=== PATIENT | female | born 2000 | race Hispanic/Latino ===

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

== ENCOUNTER 2020-12-05 11:31 | Emergency (ER) | payer BC, MEDICAID ==
[2020-12-05 11:45] VITALS: BP 139/80
--- NOTE | 2020-12-05 13:56 | Emergency Department Report ---
<DEEPAK PIZANO - Last Filed: 12/05/20 16:29> ED General Adult HPI - General Chief complaint: Medical Clearance Stated complaint: 14WKS /CHECK BABY MOVEMENT Time Seen by Provider: 12/05/20 13:20 Source: patient Mode of arrival: Ambulatory Limitations: No Limitations - History of Present Illness Initial comments: 20-year-old female patient presents from her [facility] for ultrasound. Patient states she is 14 weeks and has been having lower abdominal cramping without bleeding. She denies any dysuria/hematuria/urinary frequency, stool changes, nausea/vomiting, or fever/chills/sweats. Patient states the abdominal cramping is very mild and intermittent and rates her pain as a 1/10 in severity. She also denies any dyspareunia. She states she has had mild vaginal discharge that is nonodorous and white in color. No other past medical history per patient. - Related Data Allergies Allergy/AdvReac Type Severity Reaction Status Date / Time No Known Allergies Allergy Verified 12/05/20 11:41 ED Review of Systems Constitutional: denies: chills, fever, malaise Respiratory: denies: cough, shortness of breath Cardiovascular: denies: chest pain Gastrointestinal: as per HPI. denies: nausea, vomiting Genitourinary: discharge. denies: urgency, dysuria, frequency, hematuria, abnormal menses, dyspareunia Musculoskeletal: denies: back pain Skin: denies: lesions, change in color ED Past Medical Hx - Past Medical History Previous Medical History?: No - Surgical History Past Surgical History?: No - Social History Smoking Status: Current Every Day Smoker Substance Use Type: None ED Physical Exam - General Limitations: No Limitations General appearance: alert, in no apparent distress - Head Head exam: Present: atraumatic, normocephalic - Eye Eye exam: Present: normal appearance. Absent: scleral icterus - Respiratory Respiratory exam: Absent: respiratory distress - Cardiovascular Cardiovascular Exam: Present: regular rate, normal rhythm - GI/Abdominal GI/Abdominal exam: Present: soft, normal bowel sounds. Absent: distended, tenderness, guarding, rebound, rigid - Back Exam Back exam: Present: full ROM. Absent: CVA tenderness (R), CVA tenderness (L) - Neurological Exam Neurological exam: Present: alert, oriented X3, normal gait - Psychiatric Psychiatric exam: Present: normal affect, normal mood ED Medical Decision Making - Lab Data Result diagrams: 12/05/20 14:40 12/05/20 14:40 Lab Results 12/05/20 12/05/20 12/05/20 Range/Units 14:40 14:40 14:40 WBC 5.7 (4.5-11.0) K/mm3 RBC 4.17 (3.65-5.03) M/mm3 Hgb 13.3 (10.1-14.3) gm/dl Hct 39.1 (30.3-42.9) % MCV 94 (79-97) fl MCH 32 (28-32) pg MCHC 34 (30-34) % RDW 13.1 L (13.2-15.2) % Plt Count 171 (140-440) K/mm3 Lymph % (Auto) 45.1 H (13.4-35.0) % Winn % (Auto) 10.6 H (0.0-7.3) % Eos % (Auto) 4.5 H (0.0-4.3) % Baso % (Auto) 0.8 (0.0-1.8) % Lymph # (Auto) 2.6 (1.2-5.4) K/mm3 Winn # (Auto) 0.6 (0.0-0.8) K/mm3 Eos # (Auto) 0.3 (0.0-0.4) K/mm3 Baso # (Auto) 0.0 (0.0-0.1) K/mm3 Seg Neutrophils % 39.0 L (40.0-70.0) % Seg Neutrophils # 2.2 (1.8-7.7) K/mm3 Sodium 141 (137-145) mmol/L Potassium 3.9 (3.6-5.0) mmol/L Chloride 102.0 (98-107) mmol/L Carbon Dioxide 26 (22-30) mmol/L Anion Gap 17 mmol/L BUN 10 (7-17) mg/dL Creatinine 0.8 (0.6-1.2) mg/dL Estimated GFR > 60 ml/min BUN/Creatinine Ratio 13 % Glucose 100 (65-100) mg/dL Calcium 9.6 (8.4-10.2) mg/dL Total Bilirubin 0.20 (0.1-1.2) mg/dL AST 29 (5-40) units/L ALT 22 (7-56) units/L Alkaline Phosphatase 92 (35-129) units/L Total Protein 6.7 (6.3-8.2) g/dL Albumin 4.4 (3.9-5) g/dL Albumin/Globulin Ratio 1.9 % HCG, Quant < 2 (0-4) mIU/mL - Radiology Data Radiology results: report reviewed [facility]IME[facility] OBSTETRIC ULTRASOUND ULTRASOUND OB TRANSVAGINAL HISTORY: Pelvic pain COMPARISON: None. TECHNIQUE: Routine transabdominal and transvaginal OB ultrasound performed. FINDINGS: Uterus: Normal size measuring 7.0 x 3.1 x 3.8 cm. Gestational Sac: Not seen Yolk Sac: Not seen Fetus/Embryo: Not seen Endometrium: 3 mm in thickness Ovaries: The right ovary is normal in size and appearance with normal blood flow, measuring 3.2 x 1.8 x 3.2 cm. The left ovary is normal in size and appearance with normal blood flow, measuring 2.9 x 2.0 x 3.0 cm. No adnexal cyst or mass is appreciated. Additional findings: Trace fluid in the cul-de-sac is identified which appears physiologic IMPRESSION No intrauterine is visualized. Unremarkable pelvic ultrasound. Please note that an ectopic is not entirely excluded. Please correlate with the patient's history and laboratory values. - Medical Decision Making 20-year-old female patient presents from her [facility] for ultrasound. Patient states she is 14 weeks and has been having lower abdominal cramping without bleeding. She denies any dysuria/hematuria/urinary frequency, stool changes, nausea/vomiting, or fever/chills/sweats. Patient states the abdominal cramping is very mild and intermittent and rates her pain as a 1/10 in severity. She also denies any dyspareunia. She states she has had mild vaginal discharge that is nonodorous and white in color. No other past medical history per patient. Ultrasound is negative for IUP in beta-hCG quant <2. No other abnormalities no arun on CBC or CMP. No tenderness of the abdomen noted on exam. Patient declined pelvic exam. She also denies any urinary symptoms. Patient handed over to Melia Reed PA-C pending UA results. ED Disposition Clinical Impression: Vaginal discharge Disposition: 01 HOME / SELF CARE / HOMELESS Is pt being admited?: No Condition: Stable Instructions: Vaginal Yeast Infection, Adult Additional Instructions: Please follow-up with your [facility] within 2 to 3 days. Referrals: PRIMARY CAREMD [Primary Care Provider] - 3-5 Days BONITA RODRIGUEZ MD [Staff Physician] - 3-5 Days <MELIA REEDNA - Last Filed: 12/05/20 17:34> ED Review of Systems ROS: Stated complaint: 14WKS /CHECK BABY MOVEMENT Other details as noted in HPI ED Course Vital Signs 12/05/20 11:43 Temperature 98.8 F Pulse Rate 96 H Respiratory 18 Rate Blood Pressure 139/80 O2 Sat by Pulse 98 Oximetry ED Medical Decision Making - Lab Data Result diagrams: 12/05/20 14:40 12/05/20 14:40 - Medical Decision Making Care of patient transferred by Deepak Pizano PA-C at change of shift. Urinalysis is unremarkable. Patient will be discharged home to follow-up with her primary care provider. Strict return precautions provided. Critical care attestation.: If time is entered above; I have spent that time in minutes in the direct care of this critically ill patient, excluding procedure time. ED Disposition Is pt being admited?: No Does the pt Need Aspirin: No Time of Disposition: 17:32
--- NOTE | 2020-12-05 14:25 | Ultrasound Report ---
[facility] OBSTETRIC ULTRASOUND ULTRASOUND OB TRANSVAGINAL HISTORY: Pelvic pain COMPARISON: None. TECHNIQUE: Routine transabdominal and transvaginal OB ultrasound performed. FINDINGS: Uterus: Normal size measuring 7.0 x 3.1 x 3.8 cm. Gestational Sac: Not seen Yolk Sac: Not seen Fetus/Embryo: Not seen Endometrium: 3 mm in thickness Ovaries: The right ovary is normal in size and appearance with normal blood flow, measuring 3.2 x 1. 8 x 3.2 cm. The left ovary is normal in size and appearance with normal blood flow, measuring 2.9 x 2.0 x 3.0 cm. No adnexal cyst or mass is appreciated. Additional findings: Trace fluid in the cul-de-sac is identified which appears physiologic IMPRESSION No intrauterine is visualized. Unremarkable pelvic ultrasound. Please note that an ectopic is not entirely excluded. Please correlate with the patient's history and laboratory values . Signer Name: Darrel Duffy Jr, MD Signed: 12/05/2020 2:21 PM Workstation Name: [id number]
[2020-12-05 15:35] LABS: Basophils % (Auto) 0.8 % (0.0-1.8); Eosinophils # (Auto) 0.3 K/mm3 (0.0-0.4); Eosinophils % (Auto) 4.5 % (0.0-4.3); Hematocrit 39.1 % (30.3-42.9); Hemoglobin 13.3 gm/dl (10.1-14.3); Lymphocytes # (Auto) 2.6 K/mm3 (1.2-5.4); Lymphocytes % (Auto) 45.1 % (13.4-35.0); Mean Corpuscular HGB Conc 34 % (30-34); Mean Corpuscular Volume 94 fl (79-97); Monocytes # (Auto) 0.6 K/mm3 (0.0-0.8); Monocytes % (Auto) 10.6 % (0.0-7.3); Platelet Count 171 K/mm3 (140-440); Red Blood Count 4.17 M/mm3 (3.65-5.03); Red Cell Distribution Width 13.1 % (13.2-15.2)
[2020-12-05 15:43] LABS: Alanine Aminotransferase 22 units/L (7-56); Albumin 4.4 g/dL (3.9-5); BUN/Creatinine Ratio 13; Blood Urea Nitrogen 10 mg/dL (7-17); Calcium 9.6 mg/dL (8.4-10.2); Hemolysis Index 10
[2020-12-05 17:00] LABS: Bilirubin,Urine NEG (Negative); Blood,Urine NEG (Negative); Color,Urine Straw (Yellow); Mucus,Urine FEW /HPF; Protein,Urine <15 mg/dL mg/dL (Negative); Urobilinogen,Urine < 2.0 mg/dL (<2.0); WBC,Urine < 1.0 /HPF (0.0-6.0)
== END 2020-12-05 17:40 | disposition home or self-care (01) ==
LOC: ED 11:31
DX: O26.892 Other specified pregnancy related conditions, second trimester (principal); Z3A.14 14 weeks gestation of pregnancy; N89.8 Other specified noninflammatory disorders of vagina; F17.200 Nicotine dependence, unspecified, uncomplicated
CPT/HCPCS: 36415; 76801; 76817; 80053; 81001; 84702; 85025; 99283; 99284